=== PATIENT | female | born 1960 | race Caucasian/White ===

== ENCOUNTER 2018-10-24 12:31 | Emergency (ER) | payer BC ==
[2018-10-24 14:00] VITALS: BP 133/83
--- NOTE | 2018-10-24 14:18 | ED ---
Throat Pain/Nasal Congestion - HPI Summary HPI Summary: 58 yr old female with the complaint of runny nose, post nasal drip, coughing of yellow sputum, sinus pressure and bilateral ear pain. Onset of symptoms over a week or so. She states her symptoms are worse at night when laying down and in morning when she gets up. Cough is most present at these times. - History of Current Complaint Chief Complaint: UCRespiratory Time Seen by Provider: 10/24/18 14:08 - Allergies/Home Medications Allergies/Adverse Reactions: Allergies Allergy/AdvReac Type Severity Reaction Status Date / Time environmental Allergy Congestion Uncoded 10/24/18 14:01 Home Medications: Home Medications Albuterol HFA INHALER* [Ventolin HFA Inhaler*] 2 puff INH Q6H PRN 10/24/18 [ History Confirmed 10/24/18] Loratadine/Pseudoephedrine [Claritin-D 12 Hour] 1 tab PO BID PRN 10/24/18 [ History Confirmed 10/24/18] PMH/Surg Hx/FS Hx/Imm Hx Respiratory History: Reports: Hx Asthma - Cancer History Hx Chemotherapy: No Hx Radiation Therapy: No Infectious Disease History: No Infectious Disease History: Denies: Traveled Outside the [place] in Last 30 Days - Family History Known Family History: Negative: Respiratory Disease - Social History Occupation: Employed Full-time Lives: With Family Alcohol Use: Weekly Alcohol Amount: 6-7 wine Substance Use Type: Reports: None Smoking Status (MU): Former Smoker Review of Systems Constitutional: Negative Positive: Nasal Discharge, Other - sinus pain Positive: Cough All Other Systems Reviewed And Are Negative: Yes Physical Exam Triage Information Reviewed: Yes Vital Signs On Initial Exam: Initial Vitals Temp Pulse Resp BP Pulse Ox 98.3 F 92 18 133/83 100 10/24/18 13:52 10/24/18 13:52 10/24/18 13:52 10/24/18 13:52 10/24/18 13:52 Vital Signs Reviewed: Yes Appearance: Positive: Well-Appearing, No Pain Distress Skin: Positive: Warm, Skin Color Reflects Adequate Perfusion Head/Face: Positive: Normal Head/Face Inspection Eyes: Positive: EOMI, RIDGE ENT: Positive: Pharynx normal, Sinus tenderness. Negative: TMs normal - retracted and mild red Neck: Positive: Nontender Respiratory/Lung Sounds: Positive: Clear to Auscultation, Breath Sounds Present Cardiovascular: Positive: RRR. Negative: Murmur Abdomen Description: Negative: Distended Musculoskeletal: Positive: Strength/ROM Intact Neurological: Positive: Sensory/Motor Intact, Alert, Oriented to Person Place, Time, CN Intact II-III, Normal Gait, Speech Normal Psychiatric: Positive: Normal - Oma Coma Scale Best Eye Response: 4 - Spontaneous Best Motor Response: 6 - Obeys Commands Best Verbal Response: 5 - Oriented Coma Scale Total: 15 Diagnostics - Vital Signs Vital Signs Temp Pulse Resp BP Pulse Ox 10/24/18 13:52 98.3 F 92 18 133/83 100 - Laboratory Lab Statement: Any lab studies that have been ordered have been reviewed, and results considered in the medical decision making process. EENT Course/Dx - Course Course Of Treatment: 58 yr old female with sinusitis. Rx Augmentin. - Diagnoses Provider Diagnoses: Sinusitis Discharge - Sign-Out/Discharge Documenting (check all that apply): Patient Departure All imaging exams completed and their final reports reviewed: No Studies - Discharge Plan Condition: Good Disposition: HOME Prescriptions: Amoxicillin/Clavulanate TAB* [Augmentin TAB 875*] 875 mg PO BID #20 tab Patient Education Materials: Sinusitis (ED) Referrals: Fernando Brower MD [Primary Care Provider] - 2 Days - Billing Disposition and Condition Condition: GOOD Disposition: Home
== END 2018-10-24 14:23 | disposition home or self-care (01) ==
LOC: UCCORT 12:31
DX: J32.9 Chronic sinusitis, unspecified (principal); Z87.891 Personal history of nicotine dependence
CPT/HCPCS: 99212; G0463